=== PATIENT | male | born 1950 | race Caucasian/White ===

== ENCOUNTER → 2016-12-11 | Outpatient (CLI) | payer BC | END | disposition home or self-care (01) | LOC: CFH 09:07 | DX: B18.2 Chronic viral hepatitis C (principal); K74.69 Other cirrhosis of liver | CPT/HCPCS: 76700 ==

== ENCOUNTER → 2017-06-13 | Outpatient (CLI) | payer BC | END | disposition home or self-care (01) | LOC: CFH 08:27 | PROVIDERS: ATTEND Transplant Surgery | DX: K74.60 Unspecified cirrhosis of liver (principal) | CPT/HCPCS: 76700 ==